=== PATIENT | male | born 1990 | race Caucasian/White ===

== ENCOUNTER 2017-03-15 08:34 | Day surgery (SDC) | payer OTHER ==
[2017-03-14 10:47] VITALS: BMI 26.1
[2017-03-15] MEDS ORDERED: MIDAZOLAM HCL 2 MG/2 ML SINGLE DOSE VIAL ONE (10:27)
[2017-03-15] MEDS ORDERED: PROPOFOL 20 ML ONE ×2 (10:35)
[2017-03-15] MEDS ORDERED: DESFLURANE GAS 240 ML BOTTLE IH ONE (10:38)
[2017-03-15] MEDS ORDERED: GENTAMICIN SO4 80 MG/2 ML VIAL IVPB ONE (10:39)
[2017-03-15] MEDS ORDERED: ceFAZolin SODIUM 1 GM VIAL IVPB ONE (10:39)
[2017-03-15] MEDS ORDERED: KETOROLAC TROMETHAMINE 30 MG/1 ML VIAL ONE (11:24)
[2017-03-15] MEDS ORDERED: GENTAMICIN SO4 80 MG/2 ML VIAL ONE (11:24)
[2017-03-15] MEDS ORDERED: DEXAMETHASONE SOD PHOSPHATE 4 MG/1 ML VIAL ONE (11:24)
[2017-03-15] MEDS ORDERED: ceFAZolin SODIUM 1 GM VIAL ONE (11:24)
--- NOTE | 2017-03-15 11:33 | OP ---
Operative Note - Note: Operative Date: 03/15/17 Pre-Operative Diagnosis: retained stent ureteral calculi Operation: Cystoscopy ureteroscopy stent removal stent placement Findings: calcified stent Severe hydronephrosis Post-Operative Diagnosis: Same as Pre-op Surgeon: Chino Nugent MD. Anesthesia: General Specimens Removed: DJ stent Estimated Blood Loss (mls): 10 Drains & Tubes with Location: 24 cm DJ stent
[2017-03-15] MEDS ORDERED: ONDANSETRON 4 MG/2 ML VIAL IVPUSH PRN (11:35)
[2017-03-15] MEDS ORDERED: PROMETHAZINE HCL 25 MG/1 ML VIAL IVPUSH PRN (11:35)
[2017-03-15] MEDS ORDERED: oxyCODONE HCL 5 MG TABLET PO PRN (11:35)
[2017-03-15] MEDS ORDERED: MEPERIDINE HCL CARPU-JECT 25 MG/1 ML DISP.SYRIN IVPUSH ONE ×2 (11:45→12:30)
[2017-03-15] MEDS ORDERED: MEPERIDINE HCL CARPU-JECT 25 MG/1 ML DISP.SYRIN ONE (11:46)
[2017-03-15 12:40] VITALS: TEMP 98.8
[2017-03-15 13:23] VITALS: BP 135/83; PULSE 90
--- NOTE | 2017-03-15 16:39 | OP ---
DATE OF OPERATION: 03/15/2017 PREOPERATIVE DIAGNOSES: Retained stent, ureteral calcifications. POSTOPERATIVE DIAGNOSES: Retained stent, ureteral calcifications. PROCEDURE: Cystoscopy, ureteroscopy, removal of stent, placement of stent. HISTORY: This is a 26-year-old gentleman who apparently had endoscopic lithotripsy approximately 4 years ago. Patient failed to return for followup for stent removal. The patient now presents with severe left flank pain. On preoperative imaging, was found to have severe hydronephrosis and hydroureter. The stent was attempted to be removed under local in the office; however, due to the severe calcifications, this was unsuccessful. The patient was instructed that this procedure can be quite difficult and that the calcifications adherent to the ureter may cause ureteral damage requiring repeat surgery. All questions were answered through a district ranger. BRIEF OPERATIVE NOTE: Patient brought into the operating room, placed in supine position. Once general anesthesia was administered, the patient was transferred to dorsal lithotomy position, prepped and draped in standard sterile fashion. Intravenous Ancef and gentamicin were given. At this time, a 22-Cypriot cystoscope sheath was placed under direct vision. The distal part of the ureteral stent was identified with multiple calcanectomy covering the stent. A 0.03 guidewire was passed into the orifice and was passed unto the level of the mid-ureter, approximately at the region of the curl of the stent. At this time, the wire was passed several times to free up periureteral calcifications which were adherent to the stent. The grasper was then used to remove the stent. At this time, contrast was used to identify this ureter. A wire was then placed up into the renal pelvis with some negotiation at the level of the mid-ureter where the curl was initially identified. At this point, a wire was passed up into the renal pelvis. To assure patency of the ureter, the 7.5-Cypriot flexible Storz ureteroscope was used to examine the ureter up unto the level of the renal pelvis which was blown out. There was marked dilation of the proximal ureter and renal pelvis and entire proximal collecting system. At this time, a 24-cm 6-Cypriot stent was then placed over the wire. The bladder was drained and patient brought to recovery room in stable and satisfactory condition. KATHE TINOCO M.D. [id number]
--- NOTE | 2017-03-16 09:39 | PATH ---
Surgical Pathology Report Patient Name: KEI RODRIGUEZ Med. Rec. #: [id number] /Age/Gender: 1990 (Age: 26) / M Account: [id number] Location: [facility] Taken: 03/15/2017 Received: 03/15/2017 Reported: 03/16/2017 Physicians: Chino Nugent M.D. 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 Electronically Signed Noman Gonzalez M.D. Gross Description Received fresh labeled "old stent," is a 41 cm in length chance-brown, calcified, coiled portion of tubing, consistent with a ureteral stent. No soft tissue is present. No sections are submitted, gross only. /03/15/201703/15/2017
== END 2017-03-15 13:45 | disposition home or self-care (01) ==
LOC: JASU-SURG 08:34
PROVIDERS: ATTEND Urology
PROC: 0TP98DZ Removal of Intraluminal Device from Ureter, Via Natural or Artificial Opening Endoscopic (ICD-10-PCS; principal; 2017-03-15 10:00)
PROC: 0T778DZ Dilation of Left Ureter with Intraluminal Device, Via Natural or Artificial Opening Endoscopic (ICD-10-PCS; 2017-03-15 10:00)
DX: T83.89XA Other specified complication of genitourinary prosthetic devices, implants and grafts, initial encounter (principal)
CPT/HCPCS: 76000-TC; 88300-TC; 94760